=== PATIENT | female | born 1985 | race American Indian/Alaskan Native ===

== ENCOUNTER 2017-11-05 01:08 | Emergency (ER) | payer OTHER ==
[2017-11-05 02:56] LABS: Basophils % (Auto) 0.3 % (0.0-1.8); Eosinophils # (Auto) 0.1 K/mm3 (0.0-0.4); Eosinophils % (Auto) 1.6 % (0.0-4.3); Hematocrit 23.2 % (30.3-42.9); Lymphocytes # (Auto) 2.4 K/mm3 (1.2-5.4); Mean Corpuscular HGB Conc 30 % (30-34); Monocytes # (Auto) 0.6 K/mm3 (0.0-0.8); Monocytes % (Auto) 7.8 % (0.0-7.3); Platelet Count 425 K/mm3 (140-440); Red Blood Count 3.65 M/mm3 (3.65-5.03); Red Cell Distribution Width 17.9 % (13.2-15.2)
[2017-11-05 03:13] LABS: Mean Corpuscular Volume 64 fl (79-97)
[2017-11-05 03:14] LABS: Mean Corpuscular Hemoglobin 19 pg (28-32)
[2017-11-05 03:18] LABS: BUN/Creatinine Ratio 20; Blood Urea Nitrogen 12 mg/dL (7-17); Calcium 8.6 mg/dL (8.4-10.2); Hemolysis Index 0
[2017-11-05] MEDS ORDERED: NACL 0.9% 500 ML 500 ML IV ONE (08:29)
[2017-11-05] MEDS ORDERED: PROTONIX IV NR (08:30)
--- NOTE | 2017-11-05 08:56 | Emergency Department Report ---
ED Syncope HPI - General Chief Complaint: Syncope Stated Complaint: WEAKNESS Time Seen by Provider: 11/05/17 08:11 Source: patient Exam Limitations: no limitations - History of Present Illness Initial Comments: 32-year-old female with past medical history asthma, gestational diabetes, deficiency anemia, gastric ulcer presents to the hospital with complaints of lightheadedness, dizziness, and syncopal episode. Patient had a syncopal episode after standing. For the last several days she has had fatigue, dyspnea on exertion, intermittent frontal headache rated nonfasting intensity. No aggravating or alleviating factors reported. Similar symptoms in the past and she required a blood transfusion. 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 Patient did not follow up. Patient is not taking her iron tablets. She just completed a heavy menstrual cycle. No complaints of melena, hematochezia, hematemesis, fever, or neck pain. Patient taking Goody powders intermittently for headache and complaints of epigastric burning pain. Patient was admitted here in 2014 for anemia had EGD revealing a gastric ulcer at that time. 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: [facility] - Related Data Allergies/Adverse Reactions: Allergies No Known Allergies Allergy (Verified 06/03/16 00:36) Home Medications: Ambulatory Orders Amoxicillin [Amoxicillin TAB] 875 mg PO BID #20 tablet 06/03/16 Ferrous Sulfate [Feosol 325 MG tab] 325 mg PO BID #60 tablet 06/03/16 Ibuprofen [Motrin] 800 mg PO Q8HR PRN #15 tablet 06/03/16 Ondansetron [Zofran Odt] 4 mg PO Q8HR #12 tab.rapdis 06/03/16 Potassium Chloride [K-Dur] 20 meq PO BID #4 tab 06/03/16 predniSONE [Deltasone] 50 mg PO QDAY #5 tab 06/03/16 Sennosides/Docusate Sodium [Senna-Docusate Sodium Tablet] 1 each PO BID PRN #20 tablet 07/16/16 ED Review of Systems ROS: Stated complaint: WEAKNESS Other details as noted in HPI Comment: All other systems reviewed and negative ED Past Medical Hx - Past Medical History Previous Medical History?: Yes Hx Diabetes: Yes (Gestational per pt) Hx Asthma: Yes Additional medical history: anemia. Gastric ulcer. vag delivery x4 - Surgical History Past Surgical History?: No Additional Surgical History: Vaginal delivery X 4 - Social History Smoking Status: Never Smoker Substance Use Type: None - Medications Home Medications: Home Medications Medication Instructions Recorded Confirmed Last Taken Type Amoxicillin [Amoxicillin TAB] 875 mg PO BID #20 tablet 06/03/16 Unknown Rx Ferrous Sulfate [Feosol 325 MG tab] 325 mg PO BID #60 tablet 06/03/16 Unknown Rx Ibuprofen [Motrin] 800 mg PO Q8HR PRN #15 tablet 06/03/16 Unknown Rx Ondansetron [Zofran Odt] 4 mg PO Q8HR #12 tab.rapdis 06/03/16 Unknown Rx Potassium Chloride [K-Dur] 20 meq PO BID #4 tab 06/03/16 Unknown Rx predniSONE [Deltasone] 50 mg PO QDAY #5 tab 06/03/16 Unknown Rx Sennosides/Docusate Sodium 1 each PO BID PRN #20 tablet 07/16/16 Unknown Rx [Senna-Docusate Sodium Tablet] ED Physical Exam - General Limitations: No Limitations - Other Other exam information: General: No limitations, patient is alert in no acute distress Head exam: Atraumatic, normocephalic Eyes exam: Normal appearance ENT: Moist mucous membrane, normal oropharynx Neck exam: Normal inspection, full range of motion, no meningismus nontender Respiratory exam: Clear to auscultation bilateral, no wheezes, rales, crackles Cardiovascular: Normal rate and rhythm, normal heart sounds Abdomen: Soft, nondistended, and nontender, with normal bowel sounds, no rebound, or guarding Rectal: Guaiac-negative brown stool Extremity: Full range of motion normal inspection no deformity Back: Normal Inspection, full range of motion, no tenderness Neurologic: Alert, oriented x3, cranial nerves intact, no motor or sensory deficit Psychiatric: normal affect, normal mood Skin: Warm, dry, intact ED Course Vital Signs 11/05/17 11/05/17 11/05/17 02:32 07:43 09:16 Temperature 97.8 F 97.7 F Pulse Rate 89 79 64 Respiratory 18 18 13 Rate Blood Pressure 113/69 120/55 121/65 O2 Sat by Pulse 100 98 100 Oximetry 11/05/17 11/05/17 11/05/17 09:21 09:30 09:46 Temperature Pulse Rate 77 74 Respiratory 16 19 15 Rate Blood Pressure 121/80 121/80 O2 Sat by Pulse 100 95 100 Oximetry 11/05/17 11/05/17 10:00 10:17 Temperature Pulse Rate 75 Respiratory 16 16 Rate Blood Pressure 118/63 O2 Sat by Pulse 100 Oximetry ED Medical Decision Making - Lab Data Result diagrams: 11/05/17 02:45 11/05/17 02:45 Lab Results 11/05/17 11/05/17 11/05/17 Range/Units 02:45 02:45 02:45 WBC 7.2 (4.5-11.0) K/mm3 RBC 3.65 (3.65-5.03) M/mm3 Hgb 7.0 L (10.1-14.3) gm/dl Hct 23.2 L (30.3-42.9) % MCV 64 L (79-97) fl MCH 19 L (28-32) pg MCHC 30 (30-34) % RDW 17.9 H (13.2-15.2) % Plt Count 425 (140-440) K/mm3 Lymph % (Auto) 33.0 (13.4-35.0) % [place] % (Auto) 7.8 H (0.0-7.3) % Eos % (Auto) 1.6 (0.0-4.3) % Baso % (Auto) 0.3 (0.0-1.8) % Lymph # 2.4 (1.2-5.4) K/mm3 [place] # 0.6 (0.0-0.8) K/mm3 Eos # 0.1 (0.0-0.4) K/mm3 Baso # 0.0 (0.0-0.1) K/mm3 Seg Neutrophils % 57.3 (40.0-70.0) % Seg Neutrophils # 4.1 (1.8-7.7) K/mm3 Sodium 139 (137-145) mmol/L Potassium 3.8 (3.6-5.0) mmol/L Chloride 99.4 (98-107) mmol/L Carbon Dioxide 26 (22-30) mmol/L Anion Gap 17 mmol/L BUN 12 (7-17) mg/dL Creatinine 0.6 L (0.7-1.2) mg/dL Estimated GFR > 60 ml/min BUN/Creatinine Ratio 20 % Glucose 89 (65-100) mg/dL Calcium 8.6 (8.4-10.2) mg/dL Iron 14 L (37-170) ug/dL TIBC 462 H (250-450) mcg/dL % Saturation 3.03 % Transferrin 387 H (192-382) mg/dl Urine HCG, Qual (Negative) Blood Type Antibody Screen Crossmatch 11/05/17 11/05/17 Range/Units 02:59 09:20 WBC (4.5-11.0) K/mm3 RBC (3.65-5.03) M/mm3 Hgb (10.1-14.3) gm/dl Hct (30.3-42.9) % MCV (79-97) fl MCH (28-32) pg MCHC (30-34) % RDW (13.2-15.2) % Plt Count (140-440) K/mm3 Lymph % (Auto) (13.4-35.0) % [place] % (Auto) (0.0-7.3) % Eos % (Auto) (0.0-4.3) % Baso % (Auto) (0.0-1.8) % Lymph # (1.2-5.4) K/mm3 [place] # (0.0-0.8) K/mm3 Eos # (0.0-0.4) K/mm3 Baso # (0.0-0.1) K/mm3 Seg Neutrophils % (40.0-70.0) % Seg Neutrophils # (1.8-7.7) K/mm3 Sodium (137-145) mmol/L Potassium (3.6-5.0) mmol/L Chloride (98-107) mmol/L Carbon Dioxide (22-30) mmol/L Anion Gap mmol/L BUN (7-17) mg/dL Creatinine (0.7-1.2) mg/dL Estimated GFR ml/min BUN/Creatinine Ratio % Glucose (65-100) mg/dL Calcium (8.4-10.2) mg/dL Iron (37-170) ug/dL TIBC (250-450) mcg/dL % Saturation % Transferrin (192-382) mg/dl Urine HCG, Qual Negative (Negative) Blood Type B POSITIVE Antibody Screen Negative Crossmatch See Detail - EKG Data -: EKG Interpreted by Ia EKG shows normal: sinus rhythm (79), axis (51), QRS complexes (95), ST-T waves ( no stemi/t inv) Rate: normal - EKG Data When compared to previous EKG there are: previous EKG unavailable - Medical Decision Making Symptomatic anemia Likely call of her symptoms including syncope 2 units of RBCs ordered Headache Ongoing intermittent prior to syncope episode CT head: naf burning epigastric pain using gooddy's hx of pud protonix given rectal neg guaic Plan to admit for transfusion and monitoring - Differential Diagnosis iron deficiency anemia, menorrhagia, GI bleed Critical Care Time: No Critical care attestation.: If time is entered above; I have spent that time in minutes in the direct care of this critically ill patient, excluding procedure time. ED Disposition Clinical Impression: Symptomatic anemia, Syncope, Iron deficiency anemia, Noncompliance with medication regimen, Headache Disposition: OP ADMIT IP TO THIS HOSP Is pt being admited?: Yes Condition: Stable Time of Disposition: 11:12 (Dr Judd/hosp)
[2017-11-05 08:57] LABS: % Iron Saturation 3.03 %
[2017-11-05 09:39] LABS: HCG Qualitative,Urine Negative (Negative)
[2017-11-05] MEDS ORDERED: ZOFRAN IV ONE (09:49)
[2017-11-05] MEDS ORDERED: MORPHINE IV ONE (09:49)
--- NOTE | 2017-11-05 10:51 | Cat Scan Report ---
CT HEAD WITHOUT CONTRAST: HISTORY: Intermittent frontal headaches for 3 days, syncope. TECHNIQUE: Sequential 2.5mm CT images. COMPARISON: none. FINDINGS: Cerebral Parenchyma: Within normal limits. Cerebellum: Within normal limits. Brainstem: Within normal limits. Ventricles: Normal. Sella: Normal. Extra-axial spaces: Normal. Basal Cisterns: Normal. Intracranial Hemorrhage: None. Midline Shift: None. Calvarium: Normal. Sinuses: Normal. Mastoid Air Cells: Normal. Visualized Orbits: Normal. IMPRESSION: Cranial CT scan within normal limits.
--- NOTE | 2017-11-05 12:15 | History and Physical Report ---
History of Present Illness Chief complaint: I got dizzy, and i feel weak History of present illness: 32 YO Female with Asthma, Iron Deficiency Anemia, Noncompliant with medication presents to ED for evaluation. Pt seen and evaluated in ED for weakness and dizziness. Pt denies sycope. Pt seen and evaluated in ED and transfused with PRBC with resolution of symptoms. Pt initiated on iron replacement therapy. Pt counseled regarding noncompliance with iron replacement therapy. Pt acknowledges understanding instructions. Pt medically optimized and back to usual state of health. 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 Past History Past Medical History: anemia Past Surgical History: No surgical history, Other (reviewed) Social history: , lives with family Family history: hypertension Medications and Allergies Allergies Allergy/AdvReac Type Severity Reaction Status Date / Time No Known Allergies Allergy Verified 06/03/16 00:36 Home Medications Medication Instructions Recorded Confirmed Last Taken Type Acetaminophen [Tylenol] 650 mg PO Q6HR PRN 11/05/17 11/05/17 11/04/17 History Ferrous Sulfate [Feosol 325 MG tab] 325 mg PO BID #60 tablet 11/05/17 Unknown Rx Sennosides/Docusate Sodium 1 each PO BID #60 tablet 11/05/17 Unknown Rx [Senna-Docusate Sodium Tablet] Review of Systems Constitutional: fatigue, weakness, no weight loss, no weight gain, no fever, no chills, no sweats, no night sweats Ears, nose, mouth and throat: no ear pain, no ear discharge, no tinnitis, no decreased hearing, no nose pain, no nasal congestion, no nasal discharge Breasts: no change in shape, no swelling, no mass Cardiovascular: decreased exercise tolerance, no chest pain, no orthopnea, no palpitations, no rapid/irregular heart beat, no edema, no syncope, no lightheadedness Respiratory: no cough, no cough with sputum, no excessive sputum, no hemoptysis , no shortness of breath, no dyspnea on exertion Gastrointestinal: no nausea, no vomiting, no diarrhea, no constipation, no change in bowel habits, no hematemesis, no BRBPR, no melena, no hematochezia Genitourinary Female: menorrhagia, no pelvic pain, no flank pain Rectal: no pain, no incontinence, no bleeding Musculoskeletal: no neck stiffness, no neck pain, no shooting arm pain, no arm numbness/tingling, no low back pain, no shooting leg pain, no leg numbness/ tingling Integumentary: no rash, no pruritis, no wounds, no jaundice, no boils Neurological: weakness, no head injury, no transient paralysis, no paralysis, no parathesias, no numbness Psychiatric: no anxiety, no memory loss, no change in sleep habits, no sleep disturbances, no insomnia, no hypersomnia Endocrine: no cold intolerance, no heat intolerance, no polyphagia, no excessive thirst Hematologic/Lymphatic: no easy bruising, no easy bleeding, no lymphadenopathy, no lymphedema Allergic/Immunologic: no urticaria, no allergic rhinitis, no wheezing, no persistent infections, no anaphylaxis, no angioedema Exam - Constitutional Vitals: Temp Pulse Resp BP Pulse Ox 97.7 F 63 15 112/66 100 11/05/17 11:27 11/05/17 12:00 11/05/17 12:00 11/05/17 12:00 11/05/17 12:00 General appearance: Present: no acute distress, well-nourished - EENT Eyes: Present: PERRL ENT: hearing intact, clear oral mucosa - Neck Neck: Present: supple, normal ROM - Respiratory Respiratory effort: normal Respiratory: bilateral: CTA - Cardiovascular Heart Sounds: Present: S1 & S2. Absent: rub, click - Extremities Extremities: pulses symmetrical, No edema Peripheral Pulses: within normal limits - Abdominal General gastrointestinal: Present: soft, non-tender, non-distended, normal bowel sounds Female genitourinary: Present: normal - Integumentary Integumentary: Present: clear, warm, dry - Musculoskeletal Musculoskeletal: gait normal, strength equal bilaterally - Psychiatric Psychiatric: appropriate mood/affect, intact judgment & insight - Neurologic Neurologic: CNII-XII intact, moves all extremities Results - Labs CBC & Chem 7: 11/05/17 02:45 11/05/17 02:45 Labs: Abnormal lab results 11/05/17 11/05/17 11/05/17 Range/Units 02:45 02:45 02:45 Hgb 7.0 L (10.1-14.3) gm/dl Hct 23.2 L (30.3-42.9) % MCV 64 L (79-97) fl MCH 19 L (28-32) pg RDW 17.9 H (13.2-15.2) % Hand % (Auto) 7.8 H (0.0-7.3) % Creatinine 0.6 L (0.7-1.2) mg/dL Iron 14 L (37-170) ug/dL TIBC 462 H (250-450) mcg/dL Transferrin 387 H (192-382) mg/dl Crossmatch 11/05/17 Range/Units 02:59 Hgb (10.1-14.3) gm/dl Hct (30.3-42.9) % MCV (79-97) fl MCH (28-32) pg RDW (13.2-15.2) % Hand % (Auto) (0.0-7.3) % Creatinine (0.7-1.2) mg/dL Iron (37-170) ug/dL TIBC (250-450) mcg/dL Transferrin (192-382) mg/dl Crossmatch See Detail Assessment and Plan - Patient Problems (1) Iron deficiency anemia Status: Acute Plan to address problem: Iron replacement therapy, PRBC transfusion, F/U pcp 1wk, 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
[2017-11-05] MEDS ORDERED: PERCOCET 5/325 ONE (15:28)
[2017-11-05] MEDS ORDERED: PERCOCET 5/325 PO ONE (15:31)
[2017-11-05 16:19] VITALS: BP 109/61
== END 2017-11-05 16:48 | disposition admitted as inpatient to this hospital (09) ==
LOC: ED 01:08
DX: D50.8 Other iron deficiency anemias (principal); R55 Syncope and collapse; R51 Headache; E11.9 Type 2 diabetes mellitus without complications; J45.909 Unspecified asthma, uncomplicated; Z91.14 Patient's other noncompliance with medication regimen
CPT/HCPCS: 36415; 36430; 70450; 80048; 81025; 82271; 83550; 85025; 85379; 86850; 86900; 86901; 86920; 93005; 93010; 96374; 96375; 99284; C9113; J2270; J2405; J7040; P9016

== ENCOUNTER 2018-12-26 00:06 | Outpatient (CLI) | payer OTHER ==
[2018-12-26 00:34] VITALS: BP 108/60
[2018-12-26] MEDS ORDERED: LACTATED RINGERS 500 ML IV ONE (00:38)
[2018-12-26 02:07] LABS: Basophils % (Auto) 0.4 % (0.0-1.8); Eosinophils # (Auto) 0.2 K/mm3 (0.0-0.4); Eosinophils % (Auto) 3.1 % (0.0-4.3); Hematocrit 27.2 % (30.3-42.9); Hemoglobin 9.2 gm/dl (10.1-14.3); Lymphocytes # (Auto) 2.1 K/mm3 (1.2-5.4); Lymphocytes % (Auto) 25.7 % (13.4-35.0); Mean Corpuscular HGB Conc 34 % (30-34); Mean Corpuscular Volume 77 fl (79-97); Monocytes # (Auto) 0.6 K/mm3 (0.0-0.8); Monocytes % (Auto) 7.3 % (0.0-7.3); Platelet Count 325 K/mm3 (140-440); Red Blood Count 3.54 M/mm3 (3.65-5.03); Red Cell Distribution Width 14.8 % (13.2-15.2)
[2018-12-26 02:11] LABS: Bacteria,Urine 2+ /HPF (Negative); Bilirubin,Urine NEG (Negative); Blood,Urine NEG (Negative); Color,Urine Yellow (Yellow); Mucus,Urine FEW /HPF
[2018-12-26 02:19] LABS: Alanine Aminotransferase 8 units/L (7-56); BUN/Creatinine Ratio 30; Blood Urea Nitrogen 9 mg/dL (7-17); Calcium 8.6 mg/dL (8.4-10.2); Hemolysis Index 3
[2018-12-26] MEDS ORDERED: TYLENOL #3 PO PRN (02:47)
[2018-12-26] MEDS ORDERED: LACTATED RINGERS 1,000 ML ONE (03:30)
--- NOTE | 2018-12-26 20:24 | Progress Note ---
Assessment and Plan A: at 29 weeks, 6 days gestation. Not in labor; negative FFN and no contractions seen per monitor or palpated. Anemia due to . P: Advised pt. to continue taking her vitamins and to take her iron supplements twice per day. Eat more frequently, small healthy meals. Eat more fruits and veges. Increase her water intake and avoid caffeine and sodas. Count movements daily. Warning signs of PTL discussed with pt. Follow up at [facility] this week. Patient was hydrated with IV fluids. Subjective - Subjective Date of service: 12/26/18 Principal diagnosis: at 29 weeks, 6 days gestation; rule out labor Interval history: 33 year old presents to L&D triage to rule out contractions. She states she had lower back pain and pelvic cramping today, mostly while she was at work. Patient denies vaginal bleeding or leaking of fluid. She denies abdominal trauma. She denies any constant abdominal pain. Patient denies vaginal discharge or urinary symptoms. Patient reports active movement. Patient reports she has not been drinking much water; she states she sometimes feels dizzy when she stands up suddenly. No syncopal episodes. No chest pain or shortness of breath. Patient reports: movement normal, no loss of fluid, no vaginal bleeding Objective - Exam Narrative Exam: Labs show anemia. Abdomen: Present: normal appearance, soft. Absent: distention, tenderness, guarding, rigidity Uterus: Present: normal, fundal height above umbilicus. Absent: tenderness FHR: other (FHR tracing appropriate for getational age; active movement) Uterine Contraction Monitor Mode: External Cervical Dilatation: 0 (FFN negative) Cervical Effacement Percentage: 0 station: -4 Uterine Contraction Pattern: Absent Extremities: normal (no tenderness or edema) - Labs Labs: Abnormal Labs 12/26/18 12/26/18 12/26/18 00:15 01:28 01:28 RBC 3.54 L Hgb 9.2 L Hct 27.2 L MCV 77 L MCH 26 L Potassium 3.5 L Creatinine 0.3 L Glucose 105 H Albumin 3.0 L U Epithel Cells (Auto) 15.0 H Laboratory Results - last 24 hr 12/26/18 12/26/18 12/26/18 00:15 00:50 01:28 WBC 8.0 RBC 3.54 L Hgb 9.2 L Hct 27.2 L MCV 77 L MCH 26 L MCHC 34 RDW 14.8 Plt Count 325 Lymph % (Auto) 25.7 [place] % (Auto) 7.3 Eos % (Auto) 3.1 Baso % (Auto) 0.4 Lymph # 2.1 [place] # 0.6 Eos # 0.2 Baso # 0.0 Seg Neutrophils % 63.5 Seg Neutrophils # 5.1 Sodium Potassium Chloride Carbon Dioxide Anion Gap BUN Creatinine Estimated GFR BUN/Creatinine Ratio Glucose Calcium Total Bilirubin AST ALT Alkaline Phosphatase Total Protein Albumin Albumin/Globulin Ratio Urine Color Yellow Urine Turbidity Slightly-cloudy Urine pH 7.0 Ur Specific [place] 1.027 Urine Protein 30 mg/dl Urine Glucose (UA) Neg Urine Ketones Neg Urine Blood Neg Urine Nitrite Neg Urine Bilirubin Neg Urine Urobilinogen 2.0 Ur Leukocyte Esterase Tr Urine WBC (Auto) 1.0 Urine RBC (Auto) 2.0 U Epithel Cells (Auto) 15.0 H Urine Bacteria (Auto) 2+ Urine Mucus Few Fibronectin Negative 12/26/18 01:28 WBC RBC Hgb Hct MCV MCH MCHC RDW Plt Count Lymph % (Auto) [place] % (Auto) Eos % (Auto) Baso % (Auto) Lymph # [place] # Eos # Baso # Seg Neutrophils % Seg Neutrophils # Sodium 137 Potassium 3.5 L Chloride 104.0 Carbon Dioxide 22 Anion Gap 15 BUN 9 Creatinine 0.3 L Estimated GFR > 60 BUN/Creatinine Ratio 30 Glucose 105 H Calcium 8.6 Total Bilirubin < 0.20 AST 11 ALT 8 Alkaline Phosphatase 96 Total Protein 6.6 Albumin 3.0 L Albumin/Globulin Ratio 0.8 Urine Color Urine Turbidity Urine pH Ur Specific [place] Urine Protein Urine Glucose (UA) Urine Ketones Urine Blood Urine Nitrite Urine Bilirubin Urine Urobilinogen Ur Leukocyte Esterase Urine WBC (Auto) Urine RBC (Auto) U Epithel Cells (Auto) Urine Bacteria (Auto) Urine Mucus Fibronectin
== END 2018-12-26 05:00 | disposition home or self-care (01) ==
LOC: TRG 00:06
PROVIDERS: ATTEND Obstetrics & Gynecology
DX: O26.893 Other specified pregnancy related conditions, third trimester (principal); R42 Dizziness and giddiness; M54.9 Dorsalgia, unspecified
CPT/HCPCS: 36415; 59025; 80053; 81001; 82731; 85025; J7120

== ENCOUNTER 2019-02-08 16:57 | Outpatient (CLI) | payer OTHER ==
[2019-02-08 17:31] VITALS: BP 112/56
[2019-02-08] MEDS ORDERED: LACTATED RINGERS 1,000 ML ONE (17:33)
[2019-02-08 18:24] LABS: Bacteria,Urine 1+ /HPF (Negative); Bilirubin,Urine NEG (Negative); Blood,Urine NEG (Negative); Color,Urine Yellow (Yellow); Mucus,Urine FEW /HPF; Protein,Urine <15 mg/dL mg/dL (Negative); Urobilinogen,Urine < 2.0 mg/dL (<2.0)
[2019-02-08] MEDS ORDERED: ZOFRAN IV ONE (18:49)
== END 2019-02-08 21:10 | disposition home or self-care (01) ==
LOC: TRG 16:57
PROVIDERS: ATTEND Obstetrics & Gynecology
DX: O62.9 Abnormality of forces of labor, unspecified (principal); Z3A.36 36 weeks gestation of pregnancy
CPT/HCPCS: 59025; 81001; 96374; J2405; 96360; J7120

== ENCOUNTER 2019-02-17 23:40 | Outpatient (CLI) | payer OTHER ==
[2019-02-18 00:17] VITALS: BP 125/66
[2019-02-18] MEDS ORDERED: VISTARIL PO ONE (01:02)
== END 2019-02-18 01:10 | disposition home or self-care (01) ==
LOC: TRG 23:40
PROVIDERS: ATTEND Obstetrics & Gynecology
DX: O62.8 Other abnormalities of forces of labor (principal); Z3A.37 37 weeks gestation of pregnancy
CPT/HCPCS: 59025; Q0177

== ENCOUNTER 2019-02-28 03:05 | Inpatient (IN) | payer OTHER ==
--- NOTE | 2019-02-28 06:36 | Ultrasound Report ---
Limited OB Ultrasound BPP HISTORY: variable decels. TECHNIQUE: Grayscale and color Doppler imaging performed. COMPARISON: None FINDINGS: There is a single intrauterine gestation which is cephalic in presentation. MOISE is 14. Hear t rate is 133 bpm. Placenta is positioned anteriorly. Gestational age was not obtained. Fetus receive d a score of 2 for breathing movement, movement, posture, and MOISE per the instructional assistant for a tot al score of 8 out of 8. IMPRESSION: 1. Single viable intrauterine gestation. 2. Normal BPP. Signer Name: Leoncio Siddiqui MD Signed: 02/28/2019 6:31 AM Workstation Name: [id number]
--- NOTE | 2019-02-28 06:36 | Ultrasound Report ---
Limited OB Ultrasound BPP HISTORY: variable decels. TECHNIQUE: Grayscale and color Doppler imaging performed. COMPARISON: None FINDINGS: There is a single intrauterine gestation which is cephalic in presentation. MOISE is 14. Hear t rate is 133 bpm. Placenta is positioned anteriorly. Gestational age was not obtained. Fetus receive d a score of 2 for breathing movement, movement, posture, and MOISE per the telephone supervisor for a tot al score of 8 out of 8. IMPRESSION: 1. Single viable intrauterine gestation. 2. Normal BPP. Signer Name: Leoncio Siddiqui MD Signed: 02/28/2019 6:31 AM Workstation Name: [id number]
[2019-02-28] MEDS ORDERED: BRETHINE SUB-Q PRN (08:30)
[2019-02-28] MEDS ORDERED: XYLOCAINE 2% INFILTRATI ONE (08:30)
[2019-02-28] MEDS ORDERED: ZOFRAN IV PRN (08:30)
[2019-02-28] MEDS ORDERED: SUBLIMAZE IV PRN (08:30)
--- NOTE | 2019-02-28 08:38 | History and Physical Report ---
History of Present Illness Date of examination: 02/28/19 Date of admission: 02/28/19 07:28 Chief complaint: Labor History of present illness: 33 year old presents to L&D in active labor. Patient received care at [facility]. records are available. LMP 06/05/19. EDC 03/12/19. 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 labs are as follows: B+, antibody screen negative, rubella immune, hepatitis B surface antigen negative, RPR nonreactive, HIV negative, hemoglobin electrophoresis AA, chlamydia negative, gonorrhea negative, GBS negative, trichomonas negative, 1 hour sugar test 138. 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 denies: chlamydia, gonorrhea, hepatitis B, hepatitis C, herpes, HIV, syphilis, trichomonas Family/Genetic History: diabetes, hypertension, other (asthma, common migraine) Social history: , lives with family, full code. denies: smoking, alcohol abuse, prescription drug abuse, IV drug use - Obstetrical History Expected Date of Delivery: 03/12/19 Actual Gestation: 38 Week(s) 2 Day(s) : 5 Para: 4 Hx # Term Pregnancies: 4 Number of Pregnancies: 0 Spontaneous Abortions: 0 Induced : 0 Number of Living Children: 4 Medications and Allergies Allergies Allergy/AdvReac Type Severity Reaction Status Date / Time No Known Allergies Allergy Verified 02/28/19 04:36 Home Medications Medication Instructions Recorded Confirmed Last Taken Type Ferrous Sulfate [Feosol 325 MG tab] 325 mg PO BID #60 tablet 11/05/17 02/28/19 02/27/19 Rx Vit-Fe Fumar-FA [ 1 tab PO DAILY 02/28/19 02/28/19 02/27/19 History Vitamin] Active Meds: Active Medications Ephedrine Sulfate (Ephedrine Sulfate) 10 mg IV Q2M PRN PRN Reason: Hypotension Oxytocin/Sodium Chloride (Pitocin/Ns 20 Unit/1000ml Drip) 20 units in 1,000 mls @ 125 mls/hr IV DIRECT GOPAL Lactated Ringer's (Lactated Ringers) 1,000 mls @ 125 mls/hr IV DIRECT GOPAL Lidocaine (Xylocaine 2%) 20 ml INFILTRATI ONCE ONE Stop: 02/28/19 08:31 Terbutaline Sulfate (Brethine) 0.25 mg SUB-Q ONCE PRN PRN Reason: Hyperstimulation/Hypertonicity Review of Systems All systems: negative (contractions) - Vital Signs Vital signs: Vital Signs Temp Pulse Resp BP 98.1 F 79 18 105/62 02/28/19 04:19 02/28/19 04:19 02/28/19 04:19 02/28/19 04:19 Temp Pulse Resp BP Pulse Ox 97.8 F 77 20 116/69 02/28/19 08:26 02/28/19 08:11 02/28/19 04:42 02/28/19 08:11 - Physical Exam Abdomen: Positive: normal appearance, soft. Negative: distention, tenderness, guarding, rigidity Genitourinary (Female): Positive: normal perenium. 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 Negative: tenderness, edema - Obstetrical FHR: category 1 Uterine Contraction Monitor Mode: Palpation Cervical Dilatation: 4.5 Cervical Effacement Percentage: 60 station: -4 Uterine Contraction Pattern: Regular Uterine Contraction Intensity: Moderate Results Result Diagrams: 02/28/19 09:37 All other labs normal. Assessment and Plan A: at 38 weeks, 2 days. Active labor. GBS negative. Obesity. 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 P: Admit. Continuous EFM. Anticipate vaginal .
[2019-02-28] MEDS ORDERED: PITOCin/NS 20 UNIT/1000ML DRIP 20 UNITS/1,000 ML BAG IV SCH (09:00)
[2019-02-28 10:05] LABS: Hematocrit 29.6 % (30.3-42.9); Hemoglobin 9.2 gm/dl (10.1-14.3); Mean Corpuscular HGB Conc 31 % (30-34); Mean Corpuscular Volume 75 fl (79-97); Platelet Count 300 K/mm3 (140-440); Red Blood Count 3.93 M/mm3 (3.65-5.03); Red Cell Distribution Width 16.2 % (13.2-15.2)
[2019-02-28] MEDS ORDERED: STADOL IV PRN (10:10)
[2019-02-28] MEDS: LACTATED RINGERS 1,000 ML IV SCH ×3 (10:41→21:46)
--- NOTE | 2019-02-28 12:07 | Event Note ---
Date: 02/28/19 Hemoglobin A1C is 7.3. Discussed this test result with patient and with Dr. Coreas. Patient states she had GDM with 2 of her previous pregnancies but did not have it with this . Patient states she has been eating a lot of bread and sodas during this . Discussed with patient risks associated with this result and with a high sugar/processed food diet. Discussed with patient increased risk for large baby and possible risk for shoulder dystocia. EFW ordered. Patient states she has been seeing perinatologist and that baby is supposed to be a normal sized baby. Patient states she understands the risks and still wants to proceed with labor and attempt vaginal . Consulted with Dr. Coreas re: this patient and hemoglobin A1C result. Dr. Coreas states she agrees with doing EFW and checking blood sugar every 4 hours during labor; no further orders received from Dr. Coreas.
--- NOTE | 2019-02-28 15:27 | Event Note ---
Date: 02/28/19 EFW by US is 7 lb. 11 oz. Cervix is 5/50-60/-3. Category 1 heart rate tracing. Patient desires augmentation of labor with Pitocin. Discussed with patient risks and benefits of Pitocin augmentation of labor. Patient consented to Pitocin augmentation of labor.
--- NOTE | 2019-02-28 15:31 | Ultrasound Report ---
OBSTETRIC ULTRASOUND INDICATION: Follow-up COMPARISON: Earlier the same day TECHNIQUE: Transabdominal imaging was performed. FINDINGS: Single viable intrauterine is identified. lie is currently cephalic. heart rate is 126 bpm (previously 133bpm). measurements are as follows: Biparietal diameter 9.5 cm, 38 weeks 4 days Head circumference 33.5 cm, 38 weeks 2 days Abdominal circumference 34.4 cm, 38 weeks 2 days Femur length 7.5 cm, 38 weeks 4 days Estimated birthweight at this time is 7 pounds, 11 ounces Anterior placenta is unremarkable. CONCLUSION: Single viable intrauterine currently in cephalicposition with estimated birthweight of 7 po unds, 11 ounces. No significant change since the exam from earlier today. Signer Name: Peng Rodriguez MD Signed: 02/28/2019 3:26 PM Workstation Name: [id number]
[2019-02-28] MEDS ORDERED: MARCAINE 0.25% INFILTRATI ONE (17:22)
[2019-02-28] MEDS ORDERED: NARCAN 2 MG/2 ML IV PRN (18:01)
--- NOTE | 2019-02-28 18:03 | Anesthesia Day of Surgery ---
Anesthesia Day of Surgery - Day of Surgery Patient Examined: Yes Patient H&P Reviewed: Yes Patient is NPO: Yes
[2019-02-28] MEDS ORDERED: fentaNYL-BUPIV 2 MCG/ML-0.125% 200 MCG/100 ML BAG EPIDURAL SCH (19:00)
[2019-02-28] MEDS: PITOCin/NS 30 UNIT/500ML 30 UNITS/500 ML BAG IV SCH (22:45)
[2019-03-01] MEDS: LACTATED RINGERS 1,000 ML IV SCH (03:46)
[2019-03-01] MEDS: PITOCin/NS 30 UNIT/500ML 30 UNITS/500 ML BAG IV SCH ×2 (04:28→06:57)
--- NOTE | 2019-03-01 09:42 | Progress Note ---
Assessment and Plan - Patient Problems (1) 38 weeks gestation of Current Visit: Yes Status: Acute (2) Active labor at term Current Visit: Yes Status: Acute Plan to address problem: Continue current management Continue oxytocin for labor augmentation Anticipate vaginal delivery (3) Elevated hemoglobin A1c Onset Date: 02/28/19 Current Visit: Yes Status: Acute Plan to address problem: Unknown h/o Type 2 DM or GDM Pt declining routine blood glucose monitoring Repeat testing Subjective - Subjective Date of service: 03/01/19 Principal diagnosis: IUP @ 38w3d, Active Labor Interval history: see H&P and Event Notes Patient reports: loss of fluid (AROM 03/01/19 @ 04:16; clear fluid), movem ent normal, other (bloody show), no new complaints, no contractions (epidural in place) Objective - Vital Signs Vital Signs: Vital Signs - 12hr 02/28/19 02/28/19 02/28/19 21:42 21:47 21:52 Temperature Pulse Rate 66 65 68 Blood Pressure O2 Sat by Pulse 99 100 100 Oximetry 02/28/19 02/28/19 02/28/19 21:55 21:57 22:02 Temperature Pulse Rate 63 68 65 Blood Pressure 102/58 O2 Sat by Pulse 100 99 Oximetry 02/28/19 02/28/19 02/28/19 22:07 22:09 22:12 Temperature Pulse Rate 60 73 66 Blood Pressure 108/65 O2 Sat by Pulse 99 100 Oximetry 02/28/19 02/28/19 02/28/19 22:17 22:22 22:26 Temperature Pulse Rate 91 H 81 67 Blood Pressure 111/52 O2 Sat by Pulse 100 100 Oximetry 02/28/19 02/28/19 02/28/19 22:27 22:32 22:37 Temperature Pulse Rate 68 65 70 Blood Pressure O2 Sat by Pulse 99 100 100 Oximetry 02/28/19 02/28/19 02/28/19 22:42 22:47 22:52 Temperature Pulse Rate 66 71 64 Blood Pressure 112/67 O2 Sat by Pulse 100 100 100 Oximetry 02/28/19 02/28/19 02/28/19 22:57 23:02 23:07 Temperature Pulse Rate 68 72 71 Blood Pressure O2 Sat by Pulse 100 99 100 Oximetry 02/28/19 02/28/19 02/28/19 23:12 23:17 23:22 Temperature Pulse Rate 65 68 66 Blood Pressure 117/65 O2 Sat by Pulse 100 100 100 Oximetry 02/28/19 02/28/19 02/28/19 23:27 23:32 23:37 Temperature Pulse Rate 64 66 67 Blood Pressure O2 Sat by Pulse 100 100 100 Oximetry 02/28/19 02/28/19 02/28/19 23:42 23:47 23:52 Temperature Pulse Rate 70 67 68 Blood Pressure 114/59 O2 Sat by Pulse 100 100 99 Oximetry 02/28/19 03/01/19 03/01/19 23:57 00:02 00:07 Temperature Pulse Rate 67 64 68 Blood Pressure O2 Sat by Pulse 100 100 100 Oximetry 03/01/19 03/01/19 03/01/19 00:12 00:17 00:22 Temperature Pulse Rate 64 63 71 Blood Pressure 115/56 O2 Sat by Pulse 100 100 100 Oximetry 03/01/19 03/01/19 03/01/19 00:27 00:32 00:37 Temperature Pulse Rate 67 65 72 Blood Pressure O2 Sat by Pulse 100 100 99 Oximetry 03/01/19 03/01/19 03/01/19 00:42 00:47 00:49 Temperature Pulse Rate 71 66 69 Blood Pressure 109/56 O2 Sat by Pulse 100 100 Oximetry 03/01/19 03/01/19 03/01/19 00:52 00:57 01:02 Temperature Pulse Rate 67 70 73 Blood Pressure O2 Sat by Pulse 100 100 100 Oximetry 03/01/19 03/01/19 03/01/19 01:07 01:12 01:17 Temperature Pulse Rate 68 67 66 Blood Pressure 121/59 O2 Sat by Pulse 100 100 100 Oximetry 03/01/19 03/01/19 03/01/19 01:22 01:27 01:32 Temperature Pulse Rate 72 75 73 Blood Pressure O2 Sat by Pulse 100 100 100 Oximetry 03/01/19 03/01/19 03/01/19 01:37 01:42 01:43 Temperature Pulse Rate 105 H 78 76 Blood Pressure O2 Sat by Pulse 100 100 53 L Oximetry 03/01/19 03/01/19 03/01/19 01:48 01:50 01:53 Temperature Pulse Rate 73 102 H 81 Blood Pressure O2 Sat by Pulse 97 94 100 Oximetry 03/01/19 03/01/19 03/01/19 01:55 01:58 02:01 Temperature 97.8 F Pulse Rate 72 100 H Blood Pressure O2 Sat by Pulse 100 90 Oximetry 03/01/19 03/01/19 03/01/19 02:03 02:08 02:13 Temperature Pulse Rate 70 69 74 Blood Pressure O2 Sat by Pulse 100 100 100 Oximetry 03/01/19 03/01/19 03/01/19 02:18 02:23 02:28 Temperature Pulse Rate 74 71 73 Blood Pressure O2 Sat by Pulse 100 98 100 Oximetry 03/01/19 03/01/19 03/01/19 02:30 02:33 02:38 Temperature 97.8 F Pulse Rate 75 71 Blood Pressure O2 Sat by Pulse 100 100 Oximetry 03/01/19 03/01/19 03/01/19 02:43 02:48 02:53 Temperature Pulse Rate 79 71 76 Blood Pressure O2 Sat by Pulse 100 100 100 Oximetry 03/01/19 03/01/19 03/01/19 02:58 03:03 03:08 Temperature Pulse Rate 73 71 88 Blood Pressure O2 Sat by Pulse 100 100 99 Oximetry 03/01/19 03/01/19 03/01/19 03:13 03:18 03:23 Temperature Pulse Rate 76 79 76 Blood Pressure O2 Sat by Pulse 100 100 100 Oximetry 03/01/19 03/01/19 03/01/19 03:28 03:33 03:38 Temperature Pulse Rate 103 H 88 73 Blood Pressure O2 Sat by Pulse 100 99 100 Oximetry 03/01/19 03/01/19 03/01/19 03:40 03:43 03:48 Temperature Pulse Rate 72 81 78 Blood Pressure 116/61 O2 Sat by Pulse 100 100 Oximetry 03/01/19 03/01/19 03/01/19 03:53 03:58 04:03 Temperature Pulse Rate 74 72 Blood Pressure O2 Sat by Pulse 100 100 51 L Oximetry 03/01/19 03/01/19 03/01/19 04:11 04:16 04:21 Temperature Pulse Rate 80 72 74 Blood Pressure O2 Sat by Pulse 92 100 100 Oximetry 03/01/19 03/01/19 03/01/19 04:26 04:31 04:36 Temperature Pulse Rate 80 69 72 Blood Pressure O2 Sat by Pulse 99 100 100 Oximetry 03/01/19 03/01/19 03/01/19 04:41 04:46 04:51 Temperature Pulse Rate 76 74 75 Blood Pressure O2 Sat by Pulse 100 100 100 Oximetry 03/01/19 03/01/19 03/01/19 04:56 05:01 05:06 Temperature Pulse Rate 74 80 75 Blood Pressure O2 Sat by Pulse 100 100 100 Oximetry 03/01/19 03/01/19 03/01/19 05:11 05:16 05:21 Temperature Pulse Rate 74 77 88 Blood Pressure O2 Sat by Pulse 100 100 100 Oximetry 03/01/19 03/01/19 03/01/19 05:26 05:31 05:36 Temperature Pulse Rate 81 75 76 Blood Pressure O2 Sat by Pulse 100 100 100 Oximetry 03/01/19 03/01/19 03/01/19 05:41 05:46 05:51 Temperature Pulse Rate 78 79 77 Blood Pressure O2 Sat by Pulse 100 100 100 Oximetry 03/01/19 03/01/19 03/01/19 05:56 06:01 06:06 Temperature Pulse Rate 84 80 77 Blood Pressure O2 Sat by Pulse 100 100 100 Oximetry 03/01/19 03/01/19 03/01/19 06:11 06:12 06:16 Temperature Pulse Rate 75 76 76 Blood Pressure O2 Sat by Pulse 95 94 98 Oximetry 03/01/19 03/01/19 03/01/19 06:21 06:26 06:27 Temperature Pulse Rate 75 77 87 Blood Pressure O2 Sat by Pulse 100 97 91 Oximetry 03/01/19 03/01/19 03/01/19 06:31 06:36 06:41 Temperature Pulse Rate 75 76 95 H Blood Pressure O2 Sat by Pulse 99 100 69 L Oximetry 03/01/19 03/01/19 03/01/19 06:46 06:51 06:56 Temperature Pulse Rate 92 H 91 H 82 Blood Pressure O2 Sat by Pulse 100 99 100 Oximetry 03/01/19 03/01/19 03/01/19 07:01 07:06 07:11 Temperature Pulse Rate 81 76 76 Blood Pressure O2 Sat by Pulse 100 100 100 Oximetry 03/01/19 03/01/19 03/01/19 07:16 07:21 07:26 Temperature Pulse Rate 72 81 77 Blood Pressure O2 Sat by Pulse 100 100 100 Oximetry 03/01/19 03/01/19 03/01/19 07:31 07:36 07:41 Temperature Pulse Rate 75 74 85 Blood Pressure O2 Sat by Pulse 100 100 100 Oximetry 03/01/19 03/01/19 03/01/19 07:46 07:51 07:56 Temperature Pulse Rate 78 86 77 Blood Pressure O2 Sat by Pulse 100 100 100 Oximetry 03/01/19 03/01/19 03/01/19 08:01 08:06 08:11 Temperature Pulse Rate 77 75 81 Blood Pressure O2 Sat by Pulse 100 100 100 Oximetry 03/01/19 03/01/19 03/01/19 08:16 08:21 08:26 Temperature Pulse Rate 78 80 75 Blood Pressure O2 Sat by Pulse 100 100 100 Oximetry 03/01/19 03/01/19 03/01/19 08:31 08:36 08:41 Temperature Pulse Rate 76 84 89 Blood Pressure O2 Sat by Pulse 100 100 100 Oximetry 03/01/19 03/01/19 03/01/19 08:46 08:51 08:54 Temperature Pulse Rate 79 103 H 98 H Blood Pressure O2 Sat by Pulse 100 100 91 Oximetry 03/01/19 03/01/19 03/01/19 08:56 09:01 09:02 Temperature Pulse Rate 99 H 84 83 Blood Pressure O2 Sat by Pulse 100 100 79 L Oximetry 03/01/19 03/01/19 03/01/19 09:06 09:11 09:16 Temperature Pulse Rate 75 75 82 Blood Pressure O2 Sat by Pulse 100 100 99 Oximetry 03/01/19 03/01/19 03/01/19 09:21 09:26 09:31 Temperature Pulse Rate 78 79 77 Blood Pressure O2 Sat by Pulse 100 100 100 Oximetry 03/01/19 09:36 Temperature Pulse Rate 81 Blood Pressure O2 Sat by Pulse 98 Oximetry - Exam Abdomen: Present: normal appearance Vulva: both: normal (bilateral labial edema present) FHR: auscultation normal, category 2 FHR comments: baseline 130, moderate variability, 15x15 accels, occasional variable decels Uterine Contraction Monitor Mode: External Cervical Dilatation: 7 Cervical Effacement Percentage: 100 station: -1 Uterine Contraction Frequency (min): 3-4 Uterine Contraction Pattern: Regular - Labs Labs: Abnormal Labs 02/28/19 02/28/19 09:37 09:37 Hgb 9.2 L Hct 29.6 L MCV 75 L MCH 24 L RDW 16.2 H Hemoglobin A1c 7.3 H Laboratory Results - last 24 hr 02/28/19 02/28/19 02/28/19 09:37 09:37 09:37 WBC 9.0 RBC 3.93 Hgb 9.2 L Hct 29.6 L MCV 75 L MCH 24 L MCHC 31 RDW 16.2 H Plt Count 300 Hemoglobin A1c 7.3 H RPR Nonreactive Blood Type Antibody Screen 02/28/19 09:45 WBC RBC Hgb Hct MCV MCH MCHC RDW Plt Count Hemoglobin A1c RPR Blood Type B POSITIVE Antibody Screen Negative
[2019-03-01] MEDS ORDERED: MARCAINE 0.25% INFILTRATI ONE (10:38)
[2019-03-01] MEDS ORDERED: NACL 0.9% 250ML 250 ML ONE (10:38)
--- NOTE | 2019-03-01 13:12 | Procedure Note ---
OB Delivery Note - Delivery Date of Delivery: 03/01/19 (12:40) Surgeon: SHWETHA MONCADA ([facility]) Estimated blood loss: 100cc - Vaginal Delivery presentation: vertex Delivery position: OA Intrapartum events: mult.variable deceleratio Delivery augmentation: rupture of membranes (AROM @ 04:16), pitocin Delivery monitor: external FHT, external uterine Route of delivery: Delivery placenta: spontaneous (12:49) Delivery laceration: 1st degree (perineal & periurethra) Delivery repair: vicryl (3-vicryl SH) Anesthesia: epidural Delivery comments: of a vigorous term 7 lbs 11 oz on 02/28/19 @ 12:40 with NICU team at bedside. Baby placed [id number] on maternal abdomen and dried. After 3 mins, umbilical cord double-clapmed by MAYCO Moncada and cut by FOB. Cord blood co llected. Spontaneous delivery of placenta, Homero-side presenting @ 12:49. Small lochia present. Fundal Massage and IV Pitocin bolus initiated, Fundus F/ML/U. 1st degree perineal & periurethral lacerations noted using 2 interrupted stitches with a 3-0 vicryl SH needle under epidural anesthesia. Patient tolerated the procedure well. Placenta intact; was discarded. Mom and baby in stable condition. - A at 1 minute: 8 at 5 minutes: 9 Infant Gender: Male (7 lbs 11oz (3491 gm); 19.5 in)
[2019-03-01] MEDS ORDERED: PHENERGAN PO PRN (13:15)
[2019-03-01] MEDS ORDERED: TYLENOL PO PRN (13:15)
[2019-03-01] MEDS ORDERED: TUCKS PAD TP PRN (13:15)
[2019-03-01] MEDS ORDERED: BENADRYL PO PRN (13:15)
[2019-03-01] MEDS ORDERED: LANSINOH TP PRN (13:15)
[2019-03-01] MEDS ORDERED: MILK OF MAGNESIA PO PRN (13:15)
[2019-03-01] MEDS ORDERED: DULCOLAX PR PRN (13:15)
[2019-03-01] MEDS ORDERED: ZOFRAN IV PRN (13:15)
[2019-03-01] MEDS ORDERED: PHENERGAN PR PRN (13:15)
[2019-03-01] MEDS ORDERED: SODIUM CHLORIDE FLUSH SYRINGE 10 ML IV NR (14:00)
[2019-03-01] MEDS: IBUPROFEN PO SCH (18:55)
[2019-03-01] MEDS: NORCO 5/325 PO PRN (20:00)
[2019-03-02 05:13] LABS: Hematocrit 23.4 % (30.3-42.9); Hemoglobin 7.5 gm/dl (10.1-14.3)
[2019-03-02] MEDS: IBUPROFEN PO SCH ×4 (07:12→20:17)
[2019-03-02] MEDS: FEOSOL PO SCH (10:33)
[2019-03-02] MEDS: PRENATAL VITAMIN PO SCH (10:33)
[2019-03-02] MEDS: NORCO 5/325 PO PRN ×2 (10:39→20:17)
--- NOTE | 2019-03-02 13:12 | Progress Note ---
Assessment and Plan (1) Normal spontaneous vaginal delivery Current Visit: Yes Status: Acute Plan to address problem: PPD#1 - stable Continue routine postop orders Ambulation encouraged Anticipate discharge in 24-48 hours (2) Iron deficient Anemia Current Visit: Yes Status: Acute Plan to address problem: Asymptomatic InFed 100mg IM x1 dose Continue iron therapy Subjective - Subjective Date of service: 03/02/19 Principal diagnosis: PPD#1 s/p ; Anemia Interval history: See H&P and delivery note Patient reports: appetite normal, voiding normally, pain well controlled, flatus, ambulating normally : doing well Objective - Vital Signs Latest vital signs: Vital Signs Temp Pulse Resp BP BP BP Pulse Ox 03/02/19 07:23 97.7 F 69 16 104/67 100 03/02/19 01:01 97.9 F 77 18 110/63 100 03/01/19 21:25 98.5 F 98 H 18 111/53 98 03/01/19 16:31 97.8 F 83 18 109/62 98 03/01/19 16:05 97.4 F L 18 03/01/19 16:04 88 120/65 03/01/19 13:43 88 105/64 03/01/19 13:36 82 105/67 03/01/19 13:28 88 102/68 03/01/19 13:19 71 100 03/01/19 13:14 76 99 03/01/19 13:13 73 114/55 03/01/19 13:09 78 100 Intake and Output 03/01/19 03/02/19 03/02/19 23:59 07:59 15:59 Intake Total 940 240 240 Output Total 600 Balance 340 240 240 Intake: Oral 460 240 Intake, Free Water 480 240 Output: Urine 600 Self-Catheterization 600 Other: Total, Intake Amount 460 240 Total, Output Amount 600 # Voids Void 2 1 1 - Exam Breasts: Present: normal Cardiovascular: Present: Regular rate, Normal S1, Normal S2, No murmurs Lungs: Present: Clear to auscultation, Normal air movement Abdomen: Present: normal appearance, soft, normal bowel sounds. Absent: distention Vulva: both: laceration/episiotomy (1st perineal, well approximated) Uterus: Present: firm, fundal height at umbilicus Extremities: Present: normal Deep Tendon Reflex Grade: Normal +2 - Labs Labs: Abnormal lab results 03/02/19 Range/Units 04:45 Hgb 7.5 L (10.1-14.3) gm/dl Hct 23.4 L D (30.3-42.9) %
--- NOTE | 2019-03-02 13:14 | Discharge Summary ---
Providers - Providers Date of Admission: 02/28/19 07:28 Date of discharge: 03/03/19 Attending physician: RAFI NAVA MD Primary care physician: RAFI NAVA MD Hospitalization Reason for admission: active labor Delivery: Procedure details: See delivery note Episiotomy: none Laceration: 1st degree Other procedures: none complications: none Discharge diagnosis: IUP at term delivered Condition at discharge: Good Disposition: DC-01 TO HOME OR SELFCARE Plan - Provider Discharge Summary Activity: routine, no sex for 6 weeks, no heavy lifting 4 weeks, no strenuous exercise Diet: routine Instructions: routine Additional instructions: [] Smoking cessation referral if applicable(refer to patient education folder for contact #) [] Refer to [facility] Book[facility] Call your doctor immediately for: * Fever > 100.5 * Heavy vaginal bleeding ( >1 pad per hour) * Severe persistent headache * Shortness of breath * Reddened, hot, painful area to leg or breast * Drainage or odor from incision. * Keep incision clean and dry at all times and follow doctor's instructions regarding bathing/showering - Follow up plan Follow up: RAFI NAVA MD [Primary Care Provider] - 6 Weeks
[2019-03-02] MEDS ORDERED: INFED IM ONE (14:00)
[2019-03-03] MEDS: NORCO 5/325 PO PRN (03:33)
[2019-03-03] MEDS: IBUPROFEN PO SCH (03:34)
[2019-03-03] MEDS: PRENATAL VITAMIN PO SCH (09:43)
[2019-03-03] MEDS: FEOSOL PO SCH (09:43)
[2019-03-03 13:05] VITALS: BP 114/68
== END 2019-03-03 15:00 | disposition home or self-care (01) | DRG 807 ==
LOC: TRG 03:05 → LD 07:28 → OB 03-01 17:19
PROVIDERS: ADMIT Obstetrics & Gynecology; ATTEND Obstetrics & Gynecology
PROC: 10E0XZZ Delivery of Products of Conception, External Approach (ICD-10-PCS; principal; 2019-03-01)
PROC: 10907ZC Drainage of Amniotic Fluid, Therapeutic from Products of Conception, Via Natural or Artificial Opening (ICD-10-PCS; 2019-03-01)
PROC: 0HQ9XZZ Repair Perineum Skin, External Approach (ICD-10-PCS; 2019-03-01)
PROC: 0UQMXZZ Repair Vulva, External Approach (ICD-10-PCS; 2019-03-01)
PROC: 3E0R3BZ Introduction of Anesthetic Agent into Spinal Canal, Percutaneous Approach (ICD-10-PCS; 2019-03-01)
PROC: 00HU33Z Insertion of Infusion Device into Spinal Canal, Percutaneous Approach (ICD-10-PCS; 2019-03-01)
DX: O76 Abnormality in fetal heart rate and rhythm complicating labor and delivery (principal); Z37.0 Single live birth; O99.214 Obesity complicating childbirth; O70.0 First degree perineal laceration during delivery; O99.52 Diseases of the respiratory system complicating childbirth; O99.02 Anemia complicating childbirth; E66.9 Obesity, unspecified; D50.9 Iron deficiency anemia, unspecified; E55.9 Vitamin D deficiency, unspecified; J45.909 Unspecified asthma, uncomplicated; Z3A.38 38 weeks gestation of pregnancy
CPT/HCPCS: 36415; 76815; 76816; 76819; 83036; 85014; 85018; 85027; 86592; 86850; 86900; 86901; G0378; J0595; J1750; J2405; J2590; J3010; J7050; J7120

== ENCOUNTER 2020-12-04 23:45 | Emergency (ER) | payer OTHER ==
[2020-12-04 23:57] VITALS: BP 154/87
[2020-12-05 00:38] LABS: Bacteria,Urine 2+ /HPF (Negative); Bilirubin,Urine NEG (Negative); Blood,Urine MOD (Negative); Color,Urine Straw (Yellow); Mucus,Urine FEW /HPF; Urobilinogen,Urine < 2.0 mg/dL (<2.0)
[2020-12-05 00:46] LABS: HCG Qualitative,Urine Negative (Negative)
[2020-12-05] MEDS ORDERED: predniSONE 20 MG TAB PO ONE (00:48)
[2020-12-05] MEDS ORDERED: KETOROLAC 30 MG/1 ML INJ IM ONE (00:48)
[2020-12-05] MEDS ORDERED: oxyCODONE /ACETAMINOPHEN 5-325MG TAB PO ONE (00:48)
[2020-12-05] MEDS ORDERED: ONDANSETRON 4 MG ODT TAB PO ONE (00:48)
--- NOTE | 2020-12-05 01:05 | Emergency Department Report ---
ED Back Pain/Injury HPI - General Chief Complaint: Back Pain/Injury Stated Complaint: BACK PAIN Source: patient Limitations: No Limitations - History of Present Illness Initial Comments: Patient is a 35-year-old -B[place] female with a history of chronic low back pain and asthma who presents to the ED with acute exacerbation of her chronic low back pain for the last 1 week, worse in the last 3 days. Patient states that she is not feet most of the time at work and that in the last 3 days she overworked herself resulting in worsening low back pain. Patient states that she is unable to sleep or lay down because of worsening low back pain. Patient states that she has been taking aavx-cxo-auwivrs pain medications with no relief. Patient denies fall, traumatic injury, dizziness, syncope, chest pain, shortness of breath, dysuria, urinary frequency and urgency, vaginal bleeding, abdominal pain, heavy lifting, numbness and tingling or weakness of lower extremities bilaterally, saddle paresthesia, urinary or bowel incontinence. MD Complaint: back pain (Acute exacerbation of chronic low back pain) -: Sudden, week(s) (1) Similar Symptoms Previously: Yes (Chronic low back pain) Place: home Radiation: none Severity: severe Severity scale (0 -10): 9 Quality: sharp, aching Consistency: constant Improves With: none Worsens With: movement, walking Associated Symptoms: denies other symptoms. denies: confusion, weakness, chest pain, numbness, difficulty walking, cough, difficulty urinating, diaphoresis, fever/chills, constipation, headaches, abdominal pain, loss of appetite, malaise, nausea/vomiting, rash, seizure, shortness of breath, syncope, other Treatments Prior to Arrival: NSAIDS - Related Data Home Medications Medication Instructions Recorded Confirmed Last Taken Vit-Fe Fumar-FA [ 1 tab PO DAILY 02/28/19 02/28/19 02/27/19 Vitamin] Previous Rx's Medication Instructions Recorded Last Taken Type Ferrous Sulfate [Feosol 325 MG tab] 325 mg PO BID #60 tablet 11/05/17 02/27/19 Rx Ibuprofen [Motrin] 800 mg PO Q8HR PRN #30 tablet 12/05/20 Unknown Rx Prednisone [predniSONE 10 mg 10 mg PO .TAPER #21 tab.ds.pk 12/05/20 Unknown Rx (6-Day Pack, 21 Tabs)] Sulfamethoxazole/Trimethoprim 1 each PO Q12H #20 tablet 12/05/20 Unknown Rx [Bactrim DS TAB] carisoprodoL [Soma] 350 mg PO Q8H PRN #30 tablet 12/05/20 Unknown Rx traMADoL [Ultram] 50 mg PO Q6HR PRN #12 tablet 12/05/20 Unknown Rx Allergies Allergy/AdvReac Type Severity Reaction Status Date / Time No Known Allergies Allergy Verified 02/28/19 04:36 ED Review of Systems ROS: Stated complaint: BACK PAIN Other details as noted in HPI Constitutional: denies: chills, fever Eyes: denies: eye pain, eye discharge, vision change ENT: denies: ear pain, throat pain Respiratory: denies: cough, shortness of breath, wheezing Cardiovascular: denies: chest pain, palpitations Endocrine: no symptoms reported Gastrointestinal: denies: abdominal pain, nausea, vomiting, diarrhea Genitourinary: denies: urgency, dysuria, discharge Musculoskeletal: back pain (lower back pain), arthralgia (lower back pain), myalgia. denies: joint swelling Skin: denies: rash, lesions Neurological: denies: headache, weakness, paresthesias Psychiatric: denies: anxiety, depression Hematological/Lymphatic: denies: easy bleeding, easy bruising ED Past Medical Hx - Past Medical History Hx Hypertension: No Hx Congestive Heart Failure: No Hx Diabetes: No Hx Deep Vein Thrombosis: No Hx Renal Disease: No Hx Sickle Cell Disease: No Hx Seizures: No Hx Asthma: Yes (no meds) Hx COPD: No Hx HIV: No Additional medical history: anemia. Gastric ulcer. vag delivery x4 - Surgical History Additional Surgical History: Vaginal delivery X 4 - Social History Smoking Status: Never Smoker - Medications Home Medications: Home Medications Medication Instructions Recorded Confirmed Last Taken Type Ferrous Sulfate [Feosol 325 MG tab] 325 mg PO BID #60 tablet 11/05/17 02/28/19 02/27/19 Rx Vit-Fe Fumar-FA [ 1 tab PO DAILY 02/28/19 02/28/19 02/27/19 History Vitamin] Ibuprofen [Motrin] 800 mg PO Q8HR PRN #30 tablet 12/05/20 Unknown Rx Prednisone [predniSONE 10 mg 10 mg PO .TAPER #21 tab.ds.pk 12/05/20 Unknown Rx (6-Day Pack, 21 Tabs)] Sulfamethoxazole/Trimethoprim 1 each PO Q12H #20 tablet 12/05/20 Unknown Rx [Bactrim DS TAB] carisoprodoL [Soma] 350 mg PO Q8H PRN #30 tablet 12/05/20 Unknown Rx traMADoL [Ultram] 50 mg PO Q6HR PRN #12 tablet 12/05/20 Unknown Rx ED Physical Exam - General Limitations: No Limitations General appearance: alert, in no apparent distress - Head Head exam: Present: atraumatic, normocephalic, normal inspection - Eye Eye exam: Present: normal appearance, PERRL, EOMI Pupils: Present: normal accommodation - ENT ENT exam: Present: normal exam, normal orophraynx, mucous membranes moist, TM's normal bilaterally, normal external ear exam - Neck Neck exam: Present: normal inspection, full ROM - Respiratory Respiratory exam: Present: normal lung sounds bilaterally. Absent: respiratory distress, wheezes, rales, rhonchi, chest wall tenderness, accessory muscle use, decreased breath sounds, prolonged expiratory, other - Cardiovascular Cardiovascular Exam: Present: normal rhythm, tachycardia, normal heart sounds. Absent: systolic murmur, diastolic murmur, rubs, gallop - GI/Abdominal GI/Abdominal exam: Present: soft, normal bowel sounds. Absent: tenderness, guarding, rebound, hyperactive bowel sounds, hypoactive bowel sounds - Extremities Exam Extremities exam: Present: normal inspection, full ROM, normal capillary refill - Back Exam Back exam: Present: normal inspection, full ROM, tenderness (Palpable severe lumbosacral paraspinal musculoskeletal tenderness), muscle spasm, paraspinal tenderness. Absent: vertebral tenderness - Neurological Exam Neurological exam: Present: alert, oriented X3, CN II-XII intact, normal gait, reflexes normal - Psychiatric Psychiatric exam: Present: normal affect, normal mood - Skin Skin exam: Present: warm, dry, intact, normal color. Absent: rash ED Course Vital Signs 12/04/20 23:55 Temperature 98.4 F Pulse Rate 102 H Respiratory 20 Rate Blood Pressure 154/87 O2 Sat by Pulse 100 Oximetry ED Medical Decision Making - Medical Decision Making This is a 35-year-old -B[place] female with a history of chronic low back pain and asthma who presents to the ED with acute exacerbation of her chronic low back pain for the last 1 week, worse in the last 3 days. Patient states that she is not feet most of the time at work and that in the last 3 days she overworked herself resulting in worsening low back pain. Patient states that she is unable to sleep or lay down because of worsening low back pain. Patient states that she has been taking hfrc-[id number] pain medications with no relief. In the ED, patient is alert and oriented x3 and is not in any distress but tachycardic and anxious in triage. Patient crying during the physical exam because of worsening pain. Patient was therefore treated for pain in the ED based on the history and physical exam findings. Patient symptoms are likely due to muscle spasm and muscle strain of lumbosacral paraspinal muscles. On reevaluation, patient's pain is well controlled with medications. Patient's tachycardia also resolved with medications. Patient was therefore discharged home on pain medications and muscle relaxants and was advised to follow-up with her primary care physician in 5 to 7 days for reevaluation. Patient was advised return to the ED immediately if symptoms get worse. - Differential Diagnosis Muscle spasm; chronic back pain; muscle strain; degenerative disc disease Critical care attestation.: If time is entered above; I have spent that time in minutes in the direct care of this critically ill patient, excluding procedure time. ED Disposition Clinical Impression: Acute exacerbation of chronic low back pain, Spasm of muscle of lower back, Sprain of ligaments of lumbar spine, initial encounter, Acute urinary tract infection Disposition: TO HOME OR SELFCARE Is pt being admited?: No Does the pt Need Aspirin: No Condition: Stable Instructions: Muscle Cramps and Spasms, [id number], Chronic Back Pain, Uvyw-si-Gija, Urinary Tract Infection, Adult, [id number] Additional Instructions: Your symptoms are due to acute exacerbation of chronic low back pain due to continued exertion and upright position at work. Therefore take medications with food, drink plenty of fluids and follow-up with your primary care physician in 5 to 7 days for reevaluation. Return to the ED immediately if symptoms get worse. Prescriptions: Sulfamethoxazole/Trimethoprim [Bactrim DS TAB] 1 each PO Q12H #20 tablet Ibuprofen [Motrin] 800 mg PO Q8HR PRN #30 tablet PRN Reason: Pain , Severe (7-10) Prednisone [predniSONE 10 mg (6-Day Pack, 21 Tabs)] 10 mg PO .TAPER #21 tab.ds.pk carisoprodoL [Soma] 350 mg PO Q8H PRN #30 tablet PRN Reason: Muscle Spasm traMADoL [Ultram] 50 mg PO Q6HR PRN #12 tablet PRN Reason: Pain Referrals: [facility] [Provider Group] - 3-5 Days Forms: Work/School Release Form(ED) Time of Disposition: 01:03 Print Language: GEORGIAN
== END 2020-12-05 01:51 | disposition home or self-care (01) ==
LOC: ED 23:45
DX: S33.5XXA Sprain of ligaments of lumbar spine, initial encounter (principal); N39.0 Urinary tract infection, site not specified; M54.5 Low back pain; M62.830 Muscle spasm of back; J45.909 Unspecified asthma, uncomplicated; Z98.890 Other specified postprocedural states; Z79.1 Long term (current) use of non-steroidal anti-inflammatories (NSAID); Z79.899 Other long term (current) drug therapy; X58.XXXA Exposure to other specified factors, initial encounter; Y93.89 Activity, other specified; Y92.89 Other specified places as the place of occurrence of the external cause; Y99.8 Other external cause status
CPT/HCPCS: 81001; 81025; 87086; 96372; 99283; J1885; J7512; Q0162

== ENCOUNTER 2021-11-27 01:25 | Emergency (ER) | payer SELFPAY ==
--- NOTE | 2021-11-27 04:24 | XRay Report ---
LEFT KNEE 3 VIEW(S) INDICATION / CLINICAL INFORMATION: fell COMPARISON: None available. FINDINGS: BONES / JOINT(S): Acute transverse fracture through the inferior pole of the patella. No significant arthritis. SOFT TISSUES: No significant abnormality. ADDITIONAL FINDINGS: None. Signer Name: Rahul Jara DO Signed: 11/27/2021 4:19 AM Workstation Name: [id number]
[2021-11-27] MEDS ORDERED: KETOROLAC 30 MG/1 ML INJ IV ONE (04:34)
[2021-11-27] MEDS ORDERED: HYDROmorphone 1 MG/1 ML INJ IV ONE (04:34)
[2021-11-27] MEDS ORDERED: ONDANSETRON 4 MG/2 ML INJ IV ONE ×2 (04:34→05:53)
--- NOTE | 2021-11-27 05:47 | Emergency Department Report ---
ED Fall HPI - General Chief Complaint: Extremity Injury, Lower Stated Complaint: LEFT LEG INJURY Source: patient Mode of arrival: Ambulatory - History of Present Illness Initial Comments: Patient is a 36-year-old -[place] female with history of asthma who presents to the ED with complaint of acute onset left knee pain with swelling after she slipped on the concrete ground and fell down landing on the left knee about 8 hours ago. Patient states that she is unable to bear weight on the left leg because of severe left knee pain. Patient denies head or neck injuries, back injuries, hip pain, chest pain or shortness of breath, numbness and tingling or weakness of lower extremities bilaterally, dizziness, syncope, seizures or change in vision and headache. MD Complaint: fall, other (LEFT KNEE PAIN) -: Sudden, hour(s) (8) Fall From: standing When Fall Occurred: other (8 hours ago) Fall Witnessed: yes, by family Place Fall Occurred: home, street Loss of Consciousness: none Prolonged Down Time?: no Symptoms Prior to Fall: none Location: other (Left knee) Location - Extremities: Left: Knee (Left knee pain and swelling) Severity: severe Severity scale (0 -10): 9 Quality: sharp, aching Context: tripped/slipped Associated Symptoms: denies. denies: headache, neck pain, numbness, chest paint, shortness of breath, abdominal pain, hematuria, unable to walk, lightheaded, vertigo, confusion, other - Related Data Home Medications Medication Instructions Recorded Confirmed Last Taken Vit-Fe Fumar-FA [ 1 tab PO DAILY 02/28/19 07/17/21 02/27/19 Vitamin] Previous Rx's Medication Instructions Recorded Last Taken Type Ferrous Sulfate [Feosol 325 MG tab] 325 mg PO BID #60 tablet 11/05/17 02/27/19 Rx Prednisone [predniSONE 10 mg 10 mg PO .TAPER #21 tab.ds.pk 12/05/20 Unknown Rx (6-Day Pack, 21 Tabs)] Sulfamethoxazole/Trimethoprim 1 each PO Q12H #20 tablet 12/05/20 Unknown Rx [Bactrim DS TAB] carisoprodoL [Soma] 350 mg PO Q8H PRN #30 tablet 12/05/20 Unknown Rx Benzocaine/Menthol [Cepacol Sore 1 each MM Q6H #30 lozenge 07/18/21 Unknown Rx Throat Lozenge] D-Methorphan/PE/Acetaminophen 1 each PO Q6H #30 tablet 07/18/21 Unknown Rx [Tylenol Cold Max Day Caplet] traMADoL [Ultram 50 MG tab] 50 mg PO Q6HR PRN #12 tablet 07/18/21 Unknown Rx HYDROcodone/APAP 7.5-325 [[place] 1 each PO Q8HR PRN #12 tablet 11/27/21 Unknown Rx 7.5/325] Ibuprofen [Motrin 800 MG tab] 800 mg PO Q8HR PRN #30 tablet 11/27/21 Unknown Rx methOCARBAMOL [Robaxin TAB] 750 mg PO Q8H PRN #30 tab 11/27/21 Unknown Rx Allergies Allergy/AdvReac Type Severity Reaction Status Date / Time No Known Allergies Allergy Verified 11/27/21 03:50 ED Review of Systems ROS: Stated complaint: LEFT LEG INJURY Other details as noted in HPI Constitutional: denies: chills, fever Eyes: denies: eye pain, eye discharge, vision change ENT: denies: ear pain, throat pain Respiratory: denies: cough, shortness of breath, wheezing Cardiovascular: denies: chest pain, palpitations Endocrine: no symptoms reported Gastrointestinal: denies: abdominal pain, nausea, diarrhea Genitourinary: denies: urgency, dysuria, discharge Musculoskeletal: joint swelling (Left knee pain and swelling), arthralgia (Left knee pain and swelling). denies: back pain Skin: denies: rash, lesions Neurological: denies: headache, weakness, paresthesias Psychiatric: denies: anxiety, depression Hematological/Lymphatic: denies: easy bleeding, easy bruising ED Past Medical Hx - Past Medical History Previous Medical History?: Yes Hx Hypertension: No Hx Congestive Heart Failure: No Hx Diabetes: No Hx Deep Vein Thrombosis: No Hx Renal Disease: No Hx Sickle Cell Disease: No Hx Seizures: No Hx Asthma: Yes (no meds) Hx COPD: No Hx HIV: No Additional medical history: anemia. Gastric ulcer. vag delivery x4 - Surgical History Past Surgical History?: Yes Additional Surgical History: Vaginal delivery X 4 - Social History Smoking Status: Never Smoker Substance Use Type: None - Medications Home Medications: Home Medications Medication Instructions Recorded Confirmed Last Taken Type Ferrous Sulfate [Feosol 325 MG tab] 325 mg PO BID #60 tablet 11/05/17 07/17/21 02/27/19 Rx Vit-Fe Fumar-FA [ 1 tab PO DAILY 02/28/19 07/17/21 02/27/19 History Vitamin] Prednisone [predniSONE 10 mg 10 mg PO .TAPER #21 tab.ds.pk 12/05/20 07/17/21 Unknown Rx (6-Day Pack, 21 Tabs)] Sulfamethoxazole/Trimethoprim 1 each PO Q12H #20 tablet 12/05/20 07/17/21 Unknown Rx [Bactrim DS TAB] carisoprodoL [Soma] 350 mg PO Q8H PRN #30 tablet 12/05/20 07/17/21 Unknown Rx Benzocaine/Menthol [Cepacol Sore 1 each MM Q6H #30 lozenge 07/18/21 Unknown Rx Throat Lozenge] D-Methorphan/PE/Acetaminophen 1 each PO Q6H #30 tablet 07/18/21 Unknown Rx [Tylenol Cold Max Day Caplet] traMADoL [Ultram 50 MG tab] 50 mg PO Q6HR PRN #12 tablet 07/18/21 Unknown Rx HYDROcodone/APAP 7.5-325 [[place] 1 each PO Q8HR PRN #12 tablet 11/27/21 Unknown Rx 7.5/325] Ibuprofen [Motrin 800 MG tab] 800 mg PO Q8HR PRN #30 tablet 11/27/21 Unknown Rx methOCARBAMOL [Robaxin TAB] 750 mg PO Q8H PRN #30 tab 11/27/21 Unknown Rx ED Physical Exam - General Limitations: No Limitations General appearance: alert, in no apparent distress - Head Head exam: Present: atraumatic, normocephalic, normal inspection - Eye Eye exam: Present: normal appearance, PERRL, EOMI Pupils: Present: normal accommodation - ENT ENT exam: Present: normal exam, normal orophraynx, mucous membranes moist, TM's normal bilaterally, normal external ear exam - Neck Neck exam: Present: normal inspection, full ROM. Absent: tenderness, meningismus, lymphadenopathy, thyromegaly - Respiratory Respiratory exam: Present: normal lung sounds bilaterally. Absent: respiratory distress, wheezes, rales, rhonchi, chest wall tenderness, accessory muscle use, decreased breath sounds - Cardiovascular Cardiovascular Exam: Present: regular rate, normal rhythm, normal heart sounds. Absent: systolic murmur, diastolic murmur, rubs, gallop - GI/Abdominal GI/Abdominal exam: Present: soft, normal bowel sounds. Absent: tenderness, guarding, hyperactive bowel sounds, organomegaly - Extremities Exam Extremities exam: Present: normal inspection, tenderness (Palpable left knee tenderness with mild swelling and limited range of motion due to pain), normal capillary refill, joint swelling (Left knee swelling and tenderness). Absent: full ROM (Limited range of motion of left knee due to pain), pedal edema, calf tenderness - Back Exam Back exam: Present: normal inspection, full ROM. Absent: tenderness, CVA tenderness (R), CVA tenderness (L), muscle spasm, paraspinal tenderness, vertebral tenderness, rash noted - Neurological Exam Neurological exam: Present: alert, oriented X3, CN II-XII intact, normal gait, reflexes normal - Psychiatric Psychiatric exam: Present: normal affect, normal mood - Skin Skin exam: Present: warm, dry, intact, normal color. Absent: rash ED Course Vital Signs 11/27/21 03:48 Temperature 97.6 F Pulse Rate 84 Respiratory 18 Rate Blood Pressure 113/70 [Left] O2 Sat by Pulse 100 Oximetry ED Medical Decision Making - Radiology Data Radiology results: report reviewed, image reviewed [facility] [address] [place] [address] XRay Report Signed Patient: JAMEE TO MR#: [id number] 50 : 1985 A cct:[id number] Age/Sex: 36 / F ADM Date: 11/27/21 Loc: ED Attending Dr: Ordering Physician: ALEJANDRO MEJIA MD Date of Service: 11/27/21 Procedure(s): XR knee 1-2V LT Accession Number(s): [id number] cc: ED MD ROBERTO Fluoro Time In Minutes: LEFT KNEE 3 VIEW(S) INDICATION / CLINICAL INFORMATION: fell COMPARISON: None available. FINDINGS: BONES / JOINT(S): Acute transverse fracture through the inferior pole of the patella. No significant arthritis. SOFT TISSUES: No significant abnormality. ADDITIONAL FINDINGS: None. Signer Name: Rahul Mullins DO Signed: 11/27/2021 4:19 AM Workstation Name: [id number] Transcribed By: ADINA Dictated By: RAHUL MULLINS DO Electronically Authenticated By: RAHUL MULLINS DO Signed Date/Time: 11/27/21418 DD/ 7 TD/TT: - Medical Decision Making This is a 36-year-old -[place] female with history of asthma who presents to the ED with complaint of acute onset left knee pain with swelling after she slipped on the concrete ground and fell down landing on the left knee about 8 hours ago. Patient states that she is unable to bear weight on the left leg because of severe left knee pain. In the ED, patient is alert and oriented x3 and is not in any distress. Patient was treated for pain in the ED. Patient is hemodynamically stable. Left knee x-ray showed an acute transverse fracture through the inferior pole of the patella. Patient left knee was splinted with knee immobilizer and patient fitted with crutches. On reevaluation, patient is neurovascularly intact patient pain is well controlled medication. Patient will discharge home on pain medications given a referral to the orthopedic surgeon on-call Dr. Jc for further evaluation. Patient was advised to contact Dr. Jc's office first thing today in the morning on Friday, November 27, 2021 to schedule a follow-up appointment. Patient was advised to return to the ED immediately if symptoms get worse. - Differential Diagnosis Knee fracture; knee contusion; knee sprain; leg contusion Critical care attestation.: If time is entered above; I have spent that time in minutes in the direct care of this critically ill patient, excluding procedure time. ED Disposition Clinical Impression: Contusion of left lower leg, initial encounter Closed transverse fracture of left patella Qualifiers: Encounter type: initial encounter Fracture alignment: nondisplaced Qualified Code(s): S82.035A - Nondisplaced transverse fracture of left patella, initial encounter for closed fracture Contusion of left knee Qualifiers: Encounter type: initial encounter Qualified Code(s): S80.02XA - Contusion of left knee, initial encounter Disposition: HOME / SELF CARE / HOMELESS Is pt being admited?: No Does the pt Need Aspirin: No Condition: Stable Instructions: Patellar Fracture Rehab-SportsMed, Contusion, [id number], Cast or Splint Care, Adult, [id number], Patellar Fracture, Adult Additional Instructions: The left knee x-ray showed nondisplaced transverse fracture of the left patella which is the kneecap of the left knee. Therefore take medication as needed for pain, follow-up with the orthopedic surgeon Dr. Jc for reevaluation. Contact Dr. Jc's office first thing in the morning today Saturday, November 27, 2021 to schedule a follow-up appointment. Return to the ED immediately if symptoms get worse. Prescriptions: Ibuprofen [Motrin 800 MG tab] 800 mg PO Q8HR PRN #30 tablet PRN Reason: Pain , Severe (7-10) HYDROcodone/APAP 7.5-325 [[place] 7.5/325] 1 each PO Q8HR PRN #12 tablet PRN Reason: Pain methOCARBAMOL [Robaxin TAB] 750 mg PO Q8H PRN #30 tab PRN Reason: Muscle Spasm Referrals: [facility] JC MD [Staff Physician] - 2-3 Days Forms: Work/School Release Form(ED) Time of Disposition: 05:47 Print Language: VIETNAMESE
[2021-11-27] MEDS ORDERED: MORPHINE 4 MG/1 ML INJ IV ONE (05:53)
[2021-11-27 06:01] VITALS: BP 109/70
== END 2021-11-27 08:41 | disposition home or self-care (01) ==
LOC: ED 01:25
DX: S82.002A Unspecified fracture of left patella, initial encounter for closed fracture (principal); S80.02XA Contusion of left knee, initial encounter; W19.XXXA Unspecified fall, initial encounter; Y93.89 Activity, other specified; Y92.89 Other specified places as the place of occurrence of the external cause; Y99.8 Other external cause status
CPT/HCPCS: 29515; 73560; 96374; 96375; 96376; 99283; J1170; J1885; J2270; J2405